=== PATIENT | female | born 1990 | race African-American/Black ===

== ENCOUNTER 2016-04-23 20:52 | Emergency (ER) | payer SELFPAY ==
[~2016-04-23] VITALS: Ht 162.6 cm; Wt 74.8 kg
[2016-04-23 20:53] VITALS: BP 150/71; PULSE 95; RESP 19; TEMP 98.3; O2SAT 100
--- NOTE | 2016-04-23 20:53 | NUR ---
Patient to ER bed 1 to gown for evaluation. Side rails up. Report given to Kaden AGUILAR.
--- NOTE | 2016-04-23 20:55 | NUR ---
ER MD Pettit at bedside for evaluation
--- NOTE | 2016-04-23 21:00 | NUR ---
Patient brought to ER by BLS. Patient fell while ridding the skateboard, injuring left shoulder. Came in with left shoulder immobilized by EMT, C/O pain 9/10, limited ROM. AAox4, unlabored breathing, minor abrasions to left eyebrow and upper lip, no other signs of trauma, no acute distress.
--- NOTE | 2016-04-23 21:30 | NUR ---
# 23 gauge angiocath placed to right ac. Use of asceptic technique. Opsite placed over site. Blood return noted. Flushed with 10 cc of normal saline. No evidence of infiltration noted. Patient tolerated well.
[2016-04-23] MEDS ORDERED: ONDANSETRON HCL 4 MG/2 ML VIAL IVP ONE (22:00)
[2016-04-23] MEDS ORDERED: MORPHINE 4 MG/ML INJ. SYRINGE IVP ONE (22:00)
--- NOTE | 2016-04-23 22:08 | NUR ---
Time Out Right anterior shoulder dislocation reduction patient identified x2, patient AAOx4 ER MD Pettit, Ashley Hall RN, Adeel Pritchard RN, RONDA RN, Hui EMT, Xiomara AGUILAR, Toribio Epstein
[2016-04-23] MEDS ORDERED: PROPOFOL DRIP 100 ML IV ONE ×2 (22:09→22:15)
--- NOTE | 2016-04-23 22:45 | NUR ---
2207 - start Right Anterior Shoulder Dislocation Reduction 2209 - ER MD Pettit IVP 40mg Diprivan 2210 - manipulation start 2211 - procedure finished 2212 - patient AAOx4, denies pain 2213 - shoulder immobilizer applied 2220 - radiology at bedside for post procedure xray 2224 - mother at bedside 2245 - end
[2016-04-23 22:50] VITALS: BP 131/72; PULSE 85; RESP 16; TEMP 98; O2SAT 99
--- NOTE | 2016-04-23 22:50 | NUR ---
Patient given written and verbal discharge instructions and verbalizes understanding. ER MD Pettit discussed with patient the results and treatment provided. Patient in stable condition. ID arm band removed. IV catheter removed intact and dressing applied, no active bleeding. Rx of motrin given. Patient educated on pain management and to follow up with PMD. Pain Scale 0/10. Opportunity for questions provided and answered.
== END 2016-04-23 22:50 | disposition home or self-care (01) ==
LOC: SED 20:52
DX: S43.015A Anterior dislocation of left humerus, initial encounter (principal); Z88.0 Allergy status to penicillin; V00.131A Fall from skateboard, initial encounter; Y93.51 Activity, roller skating (inline) and skateboarding; Y99.8 Other external cause status; Y92.89 Other specified places as the place of occurrence of the external cause
CPT/HCPCS: 23650; 73020; 73030; 81025; 96374; 96375; 99152; 99285; J2270; J2405; J2704; J7030